=== PATIENT | male | born 1950 | race Caucasian/White ===

== ENCOUNTER 2021-08-28 06:07 | Emergency (ER) | payer OTHER, MEDICAID ==
[~2021-08-28] VITALS: Ht 165.1 cm; Wt 74.8 kg
[2021-08-28 06:10] VITALS: BP 180/72
--- NOTE | 2021-08-28 06:10 | NUR ---
TO BED AMBULATORY
--- NOTE | 2021-08-28 06:10 | NUR ---
71 Y/O MALE BIBS FROM HOME, C/O DIZZINESS X1 DAY. PT STATES HE HAS INTERMITTENT PERIODS OF DIZZINESS SINCE YESTERDAY. PT DENIES N/V/D OR TRAUMA. A/OX4, GCS-15. UNLABORED BREATHING; AMBULATORY W/O ASSISTANCE. DENIES PAIN. DENIES PMH/RX NKA
--- NOTE | 2021-08-28 06:34 | NUR ---
ER MD AT BEDSIDE EXAMINING PT
--- NOTE | 2021-08-28 07:00 | NUR ---
LATEX SPOOLER AT BEDSIDE OBTAINING BLOOD SAMPLE
[2021-08-28] MEDS: NACL 0.9% 1,000 ML IV ONE (07:08)
--- NOTE | 2021-08-28 07:15 | NUR ---
report recieved from [facility] for transfer of care
[2021-08-28] MEDS: MECLIZINE 25 MG TAB PO ONE (07:18)
--- NOTE | 2021-08-28 07:18 | NUR ---
GAVE TRANSFER OF CARE REPORT TO [facility]
[2021-08-28 07:21] LABS: BASOPHILS % (AUTO) 0.8 % (0.0-2.0); EOSINOPHILS # (AUTO) 0.1 K/uL (0-0.4); EOSINOPHILS % (AUTO) 2.3 % (0.0-4.0); HEMATOCRIT 43.9 % (36-52); LYMPHOCYTES # (AUTO) 1.7 K/uL (2.0-11.5); MEAN CORPUSCULAR HEMOGLOBIN 28 pg (27-31); MEAN CORPUSCULAR HGB CONC 34 g/dL (33-37); MEAN CORPUSCULAR VOLUME 82.1 fL (80-94); MONOCYTES # (AUTO) 0.6 K/uL (0.8-1.0); MONOCYTES % (AUTO) 9.7 % (1.7-9.3); NEUTROPHILS # (AUTO) 3.7 K/uL (1.8-7.7); NEUTROPHILS % (AUTO) 60.2 % (42.2-75.2); PLATELET COUNT (AUTO) 212 K/uL (140-450); RED BLOOD CELL COUNT(AUTO) 5.35 MIL/uL (4.20-6.10); RED CELL DISTRIBUTION WIDTH 13.3 % (11.6-13.7); WHITE BLOOD COUNT (AUTO) 6.1 K/uL (4.8-10.8)
[2021-08-28 07:30] LABS: ANION GAP 10.8 (8-16); CARBON DIOXIDE 26.8 mmol/L (21-32); CREATININE 0.9 mg/dL (0.6-1.3); POTASSIUM 3.6 mmol/L (3.5-5.1)
[2021-08-28] MEDS ORDERED: MECL-303 PO (08:13)
--- NOTE | 2021-08-28 08:40 | NUR ---
Patient discharged with v/s stable. Written and verbal after care instructions given and explained. Patient alert, oriented and verbalized understanding of instructions. Ambulatory with steady gait. All questions addressed prior to discharge. ID band removed. Patient advised to follow up with PMD. Rx of ANTIVERT given. Patient educated on indication of medication including possible reaction and side effects. Opportunity to ask questions provided and answered.
== END 2021-08-28 08:40 | disposition home or self-care (01) ==
LOC: MED 06:07
DX: R42 Dizziness and giddiness (principal)
CPT/HCPCS: 36415; 80048; 84484; 85025; 93005; 96360; 99284; J7030; J8597